=== PATIENT | female | born 1965 | race Caucasian/White ===

== ENCOUNTER 2017-02-02 09:00 | Day surgery (SDC) | payer OTHER ==
[~2017-02-02 09:00] MED LIST: KETOROLAC TROMETHAMINE 0.45% 4 DROP/0.4 ML DROPERETTE OD PRN
[2017-02-02] MEDS: LIDOCAINE 3.5% OPH GEL/PF 1 ML/TUBE OD PRN ×3 (09:32→10:05)
[2017-02-02] MEDS: CYCLOPENTOLATE 0.2%/PHENYLEPHRINE 1% OPH SOLN 2 ML OD PRN ×3 (09:33→09:55)
[2017-02-02] MEDS: TROPICAMIDE 1% OPH SOLN 3 ML OD PRN ×3 (09:33→09:55)
[2017-02-02] MEDS: BESIFLOXACIN HCL 0.6% OPH SUSP 5 ML BOTTLE OD PRN ×4 (09:34→10:28)
[2017-02-02] MEDS ORDERED: LIDOCAINE 1% INJ-PF (10 MG/ML) 30 ML SDV ONE (09:43)
[2017-02-02] MEDS ORDERED: EPINEPHRINE INJ/PF 1 MG/1 ML AMPULE ONE (09:43)
[2017-02-02] MEDS ORDERED: CHONDR SU A NA/HYALUR INTRAOC KIT (SURGICARE) ONE (09:43)
[2017-02-02] MEDS ORDERED: MIDAZOLAM 2 MG/2 ML INJ ONE (09:52)
[2017-02-02] MEDS: TOBRAMYCIN SULFATE/DEXAMETH OPH OINTMENT 3.5 GM ONE ×2 (10:28)
[2017-02-02] MEDS ORDERED: ACETAMINOPHEN 325 MG TABLET ONE (10:47)
== END 2017-02-02 11:13 | disposition home or self-care (01) ==
LOC: SC 09:00
PROVIDERS: ATTEND Ophthalmology
PROC: 08RJ3JZ Replacement of Right Lens with Synthetic Substitute, Percutaneous Approach (ICD-10-PCS; principal; 2017-02-02 10:00)
DX: H25.11 Age-related nuclear cataract, right eye (principal); F17.210 Nicotine dependence, cigarettes, uncomplicated; I10 Essential (primary) hypertension; Z88.6 Allergy status to analgesic agent; Z79.899 Other long term (current) drug therapy; Z88.5 Allergy status to narcotic agent
CPT/HCPCS: 66984; V2630; J2250; J3490 ×3; J0171; A9270; 142